=== PATIENT | female | born 1955 | race Caucasian/White ===

== ENCOUNTER 2017-08-15 08:27 | Emergency (ER) | payer BC, OTHER | END 2017-08-15 10:50 | disposition home or self-care (01) | LOC: M ED 08:27 | DX: R10.30 Lower abdominal pain, unspecified (principal); G89.29 Other chronic pain; F41.9 Anxiety disorder, unspecified; Z79.899 Other long term (current) drug therapy; Z88.0 Allergy status to penicillin; Z87.11 Personal history of peptic ulcer disease | CPT/HCPCS: 99284 ==